=== PATIENT | male | born 1990 | race Caucasian/White ===

== ENCOUNTER 2019-05-26 21:33 | Emergency (ER) | payer OTHER, MEDICAID ==
[~2019-05-26] VITALS: Ht 180.3 cm; Wt 74.8 kg
[2019-05-26 21:42] VITALS: BP_SYST 129
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
--- NOTE | 2019-05-26 21:48 | NUR ---
ER in triage examining patient.
[2019-05-26] MEDS ORDERED: IBUPROFEN 800 MG TABLET PO ONE (23:00)
--- NOTE | 2019-05-26 23:30 | NUR ---
VENECIA SETHI discussed Xray result with pt
[2019-05-26 23:34] VITALS: BP_SYST 122
--- NOTE | 2019-05-26 23:34 | NUR ---
Patient given written and verbal discharge instructions and verbalizes understanding. ER MD discussed with patient the results and treatment provided. Patient in stable condition. ID arm band removed. Rx of Motrin 800 mg given. Patient educated on pain management and to follow up with PMD. Pain Scale 5/10. Opportunity for questions provided and answered.
== END 2019-05-26 23:34 | disposition home or self-care (01) ==
LOC: SED 21:33
DX: S16.1XXA Strain of muscle, fascia and tendon at neck level, initial encounter (principal); V43.12XA Car passenger injured in collision with other type car in nontraffic accident, initial encounter; Y93.89 Activity, other specified; Y92.89 Other specified places as the place of occurrence of the external cause; Y99.8 Other external cause status
CPT/HCPCS: 72040-TC; 99283